=== PATIENT | male | born 1995 | race Caucasian/White ===

== ENCOUNTER 2020-12-20 21:03 | Emergency (ER) | payer BC, SELFPAY ==
--- NOTE | ~2020-12-20 | CT_ITS ---
EXAMINATION: CT abdomen pelvis wo con DATE: 12/20/2020 23:19 INDICATION: Flank pain TECHNIQUE: Computed tomography (CT) of the abdomen and pelvis was performed without intravenous contr ast. Automated exposure control and iterative reconstruction technique were employed. Exam dose: 164 4.92 mGy-cm total exam DLP. COMPARISON: None. FINDINGS: There is discoid atelectasis or more likely scarring in the middle lobe. No infiltrate or c onsolidation at the lung bases. Normal heart size. No pericardial or pleural effusion. The liver, gallbladder, bile ducts, pancreas, pancreatic duct and spleen as well as adrenal glands ar e unremarkable on this limited noncontrast examination. There IMPRESSION: Reviewed, dictated and finalized at [facility]. Reviewed, dictated and finalized at location A. AL SERVICES SPECIALIST IMPRESSION:
[2020-12-20 21:07] VITALS: BP 157/95; PULSE 107; RESP 18; TEMP 36.9; O2SAT 100
[2020-12-20 21:34] LABS: Basophils Absolute Auto 0.1 K/mm3 (0.0-0.1); Basophils Percent Auto 0.6 % (0.2-1.2); Eosinophils Absolute Auto 0.2 K/mm3 (0-0.3); Eosinophils Percent Auto 1.5 % (0-4.4); Hematocrit 45.9 % (42.0-52.0); Hemoglobin 14.9 g/dL (14.0-18.0); Immature Granulocyte Absolute 0.07 K/mm3 (0.00-0.031); Immature Granulocyte Percent A 0.5 % (0-0.5); Lymphocytes Absolute Auto 3.28 K/mm3 (0.9-3.2); Lymphocytes Percent Auto 21.2 % (18.3-44.2); Mean Corpuscular HGB Conc 32.5 g/dl (32-36); Mean Corpuscular Hemoglobin 26.5 pg (26-34); Mean Corpuscular Volume 81.5 fl (80-100); Mean Platelet Volume 10.6 fl (7.4-10.4); Monocytes Absolute Auto 1.3 K/mm3 (0.1-0.6); Monocytes Percent Auto 8.2 % (2.6-8.5); Neutrophils Absolute Auto 10.5 K/mm3 (1.3-6.7); Platelet Count Result 308 k/mm3 (150-375); Red Blood Count 5.63 M/mm3 (4.6-6.20); Red Cell Distribution Width 13.4 % (11.5-14.5); White Blood Count 15.5 K/mm3 (4.5-10.0)
[2020-12-20 21:41] LABS: Add Urine Microscopic? YES; Appearance Urine Cloudy (Clear); Bilirubin Urine Negative (Negative); Blood Urine 3+ (Negative); Color Urine Yellow (Yellow); Glucose Urine UA Negative (Negative); Ketones Urine Negative (Negative); Leukocyte Esterase Ur Negative LEU/UL (Negative); Mucus Urine Few /lpf; Nitrate Urine Negative (Negative); Protein Urine 2+ mg/dL (Negative); RBC Urine >75 /hpf (0-2); Specific Grav Ur 1.021 (1.001-1.035); Urobilinogen Urine Negative mg/dL (<2.0)
[2020-12-20 21:45] LABS: Alanine Aminotransferase 58 U/L (4-50); Albumin Level 4.2 g/dL (3.5-5.1); Alkaline Phosphatase 83 U/L (38-126); Anion Gap 6 mmol/L (8-16); Aspartate Amino Transferase 46 U/L (17-59); Bilirubin,Total 0.4 mg/dL (0.2-1.3); Blood Urea Nitrogen 14 mg/dL (9-20); Carbon Dioxide 34 mmol/L (22-30); Chloride 98 mmol/L (98-107); Estimated CRCL calculation 110 ml/min; Estimated Glomerular Filt Rate > 60; Glucose 123 mg/dL (75-110); Potassium 4.1 mmol/L (3.4-5.0); Sodium 138 mmol/L (137-145)
[2020-12-20] MEDS: SODIUM CHLORIDE 0.9% IV 1,000 ML 999 ML IV CONT (22:40)
[2020-12-20] MEDS: ONDANSETRON INJ 4 MG/2 ML VIAL IV PUSH (22:41)
[2020-12-20] MEDS: KETOROLAC 30 MG/ML VIAL (*BKC) IV PUSH (22:42)
[2020-12-20] MEDS: MORPHINE SULFATE (*CRX) 4 MG/ML INJ IV PUSH (22:43)
--- NOTE | 2020-12-21 00:01 | ED.GENADULT ---
HPI - General Adult General Chief complaint: Back Pain/Injury Stated complaint: right flank pain Time Seen by Provider: 12/20/20 22:22 History of Present Illness HPI narrative: Patient a 25-year-old gentleman who presents emergency department with complaint of right flank pain. Patient reports the pain started suddenly reports that it radiates to his right lower quadrant patient states the pain did get much better upon arrival to the emergency department the patient also reports he has noticed his urine has been very dark. Patient reports no prior history of kidney stones reports that he has had no fever or chills. Patient does report that he had some nausea with this. Related Data Allergies Allergy/AdvReac Type Severity Reaction Status Date / Time No Known Allergies Allergy Unverified 12/20/20 22:12 Review of Systems Review of Systems: Narrative: A 10 system review of systems was completed on the patient and is negative except for what is stated in the HPI. Nursing and ancillary documentation was reviewed. PMFSH Comments Patient reports no significant past medical history Social history patient does drink a fair number of energy drinks and caffeinated beverages. Denies illicit drug use Exam Narrative: Exam Narrative: GENERAL: Well-appearing, well-nourished, and in no acute distress. HEAD: Normocephalic, atraumatic. EYES: PERRLA and EOMI. ENT: Nares clear, no rhinorrhea or epistaxis. Mucous membranes moist. NECK: Supple. CHEST: Clear to auscultation. No respiratory distress. HEART: Regular rate and rhythm. No murmur heard. Normal peripheral pulses. ABDOMEN: Soft, nontender, nondistended, normal active bowel sounds. EXTREMITIES: Normal range of motion. No edema. SKIN: Warm, dry, no rash. NEURO: No focal deficits. Alert and oriented x3. PSYCH: Normal mood and affect. Course Course Emergency Course: Patient is pain was doing much better upon arrival to the emergency department CT scan of the abdomen pelvis showed evidence of a 4 mm kidney stone at the level of the pelvis. Vital Signs Vital signs: Vital Signs Temperature 36.9 C 12/20/20 21:07 Pulse Rate 107 H 12/20/20 21:07 Respiratory Rate 18 12/20/20 21:07 Blood Pressure 157/95 H 12/20/20 21:07 Pulse Oximetry 100 12/20/20 21:07 Temperature 36.9 C 12/20/20 21:07 Pulse Rate 107 H 12/20/20 21:07 Respiratory Rate 18 12/20/20 21:07 Blood Pressure 157/95 H 12/20/20 21:07 Pulse Oximetry 100 12/20/20 21:07 Medical Decision Making Vital Signs Vital Signs: Vital Signs Temperature 36.9 C 12/20/20 21:07 Pulse Rate 107 H 12/20/20 21:07 Respiratory Rate 18 12/20/20 21:07 Blood Pressure 157/95 H 12/20/20 21:07 Pulse Oximetry 100 12/20/20 21:07 Temperature 36.9 C 12/20/20 21:07 Pulse Rate 107 H 12/20/20 21:07 Respiratory Rate 18 12/20/20 21:07 Blood Pressure 157/95 H 12/20/20 21:07 Pulse Oximetry 100 12/20/20 21:07 Lab Data Result diagrams: 12/20/20 21:25 12/20/20 21:25 Labs: Lab Results 12/20/20 12/20/20 12/20/20 Range/Units 21:20 21:25 21:25 WBC 15.5 H (4.5-10.0) K/mm3 RBC 5.63 (4.6-6.20) M/mm3 Hgb 14.9 (14.0-18.0) g/dL Hct 45.9 (42.0-52.0) % MCV 81.5 (80-100) fl MCH 26.5 (26-34) pg MCHC 32.5 (32-36) g/dl RDW 13.4 (11.5-14.5) % Plt Count 308 (150-375) k/mm3 MPV 10.6 H (7.4-10.4) fl Immature Gran % (Auto) 0.5 (0-0.5) % Neut % (Auto) 68.0 (45.5-73.1) % Lymph % (Auto) 21.2 (18.3-44.2) % [place] % (Auto) 8.2 (2.6-8.5) % Eos % (Auto) 1.5 (0-4.4) % Baso % (Auto) 0.6 (0.2-1.2) % Lymph # (Auto) 3.28 H (0.9-3.2) K/mm3 [place] # (Auto) 1.3 H (0.1-0.6) K/mm3 Eos # (Auto) 0.2 (0-0.3) K/mm3 Baso # (Auto) 0.1 (0.0-0.1) K/mm3 Abs Immat Gran (auto) 0.07 H (0.00-0.031) K/mm3 Absolute Neuts (auto) 10.5 H (1.3-6.7) K/mm3 Absolute Nucleated RBC 0.0 (0.0-0.012) K/m
[2020-12-21 00:29] VITALS: BP 128/86; PULSE 78; RESP 16; TEMP 36.8; O2SAT 100
== END 2020-12-21 00:30 | disposition home or self-care (01) ==
PROVIDERS: Emergency Medicine; Emergency Provider Emergency Medicine
DX: N13.2 Hydronephrosis with renal and ureteral calculous obstruction (principal)
CPT/HCPCS: 36415; 74176; 80053; 81001; 85025; 96361; 96374; 96375; 99284; J1885; J2270; J2405; J7030

== ENCOUNTER 2020-12-29 09:57 | Outpatient (CLI) | payer BC, SELFPAY ==
--- NOTE | ~2020-12-29 | XR_ITS ---
XR abdomen/kub 1V DATE: 12/29/2020 10:12 INDICATION: Right ureteral stone TECHNIQUE: AP projection, 2 views COMPARISON: 12/20/[address] abdomen pelvis FINDINGS: Bilateral renal calcified calculi are noted. The previously reported 4 mm right distal uret eral calculus at the upper sacral level is not definitively demonstrated but might be radiographicall y occult. Consider repeat noncontrast CT abdomen pelvis examination as clinically appropriate. The psoas shadows are intact. No visceromegaly. No evidence of bowel obstruction. Included skeletal structures are unremarkable. IMPRESSION: Bilateral nephrolithiasis Reviewed, dictated and finalized at [facility]. Reviewed, dictated and finalized at location A. VITY ASSISTANT IMPRESSION: Bilateral nephrolithiasis
== END 2020-12-29 09:58 | disposition home or self-care (01) ==
PROVIDERS: Visit Provider Urology
DX: N20.1 Calculus of ureter (principal); N20.0 Calculus of kidney
CPT/HCPCS: 74018

== ENCOUNTER → 2021-01-03 10:32 | Outpatient (CLI) | payer BC, SELFPAY ==
--- NOTE | ~2021-01-03 | US_ITS ---
US retroperitoneal comp 01/03/2021 11:03 Procedure: Realtime transabdominal ultrasound of the kidneys and bladder. Indication: Right ureteral stone Comparison: CT dated 12/20/2020 Findings: Renal echotexture is normal bilaterally without hydronephrosis, contour deforming mass or r enal calculus. The right kidney measures 9.5 cm and left kidney measures 10.8 cm. Bladder within nor mal limits. Impression: 1: Unremarkable renal ultrasound. No stones, masses or hydronephrosis. Reviewed, dictated and finalized at location B. NT EVALUATOR Impression: 1: Unremarkable renal ultrasound. No stones, masses or hydronephrosis.
== END ==
PROVIDERS: Visit Provider Urology
DX: N20.1 Calculus of ureter (principal)
CPT/HCPCS: 76770

== ENCOUNTER 2023-04-20 09:52 | Emergency (ER) | payer OTHER, SELFPAY ==
[2023-04-20] VITALS (15 sets, daily range): BP systolic 118–155; BP diastolic 56–97; PULSE 83; RESP 14; TEMP 36.6; O2SAT 95–100
--- NOTE | ~2023-04-20 | XR_ITS ---
EXAMINATION: XR abdomen/kub 1V DATE: 04/20/2023 12:11 INDICATION: Right ureteral stone. TECHNIQUE: A supine view of the abdomen on 2 radiographs was obtained. COMPARISON: CT abdomen and pelvis 04/20/2023 FINDINGS: There are no dilated loops of bowel. There are stones in the kidneys measuring up to 8 mm o n the right. There is a 3 mm stone in proximal right ureter. There are phleboliths in the pelvis. IMPRESSION: 1. 3 mm stone in proximal right ureter. 2. Bilateral kidney stones. Reviewed, dictated and finalized at location A.
--- NOTE | ~2023-04-20 | CT_ITS ---
EXAMINATION: CT abdomen pelvis wo con DATE: 04/20/2023 11:22 INDICATION: Right flank pain. Abdominal pain. TECHNIQUE: Computed tomography (CT) of the abdomen and pelvis was performed without intravenous contr ast. Automated exposure control and iterative reconstruction technique were employed. The dose-length product was 1533.54 mGy-cm. COMPARISON: CT abdomen and pelvis 12/20/2020 FINDINGS: The visualized portions of the lung bases demonstrate minimal atelectasis. No pleural effus ion. The heart size is normal. No pericardial effusion. There is diffuse hepatic steatosis. The gallb ladder, spleen, pancreas, and adrenal glands are normal. There are 5 stones in right kidney measuring up to 8 mm. There is mild right hydronephrosis. There is a 3 mm stone in proximal right ureter. Ther e are 5 stones in left kidney measuring up to 6 mm. There is a left inguinal hernia containing fat. T here are no dilated loops of bowel. The appendix is normal. There are no pathologically enlarged lymp h nodes. There is no free intraperitoneal fluid. There is mild thoracic and lumbar spondylosis. There is mild chronic anterior wedging of T11 and T12 vertebral bodies. IMPRESSION: 1. 3 mm stone in proximal right ureter with mild right hydronephrosis. 2. Bilateral nonobstructing kidney stones. Reviewed, dictated and finalized at location A.
[2023-04-20 10:54] LABS: Basophils Absolute Auto 0.1 K/mm3 (0.0-0.1); Basophils Percent Auto 1.1 % (0.2-1.2); Eosinophils Absolute Auto 0.1 K/mm3 (0-0.3); Eosinophils Percent Auto 1.3 % (0-4.4); Hematocrit 44.8 % (42.0-52.0); Hemoglobin 14.4 g/dL (14.0-18.0); Immature Granulocyte Absolute 0.04 K/mm3 (0.00-0.031); Immature Granulocyte Percent A 0.5 % (0-0.5); Lymphocytes Absolute Auto 1.04 K/mm3 (0.9-3.2); Lymphocytes Percent Auto 13.8 % (18.3-44.2); Mean Corpuscular HGB Conc 32.1 g/dl (32-36); Mean Corpuscular Hemoglobin 26.1 pg (26-34); Mean Corpuscular Volume 81.2 fl (80-100); Mean Platelet Volume 10.9 fl (7.4-10.4); Monocytes Absolute Auto 0.5 K/mm3 (0.1-0.6); Monocytes Percent Auto 6.5 % (2.6-8.5); Neutrophils Absolute Auto 5.8 K/mm3 (1.3-6.7); Neutrophils Percent Auto 76.8 % (45.5-73.1); Platelet Count Result 265 k/mm3 (150-375); Red Blood Count 5.52 M/mm3 (4.6-6.20); Red Cell Distribution Width 13.3 % (11.5-14.5); White Blood Count 7.6 K/mm3 (4.5-10.0)
--- NOTE | 2023-04-20 10:57 | ED.ABDPAIN ---
HPI - Abdominal Pain General Chief Complaint: Abdominal Pain Stated Complaint: right flank pain - hx of kidney stones Time Seen by Provider: 04/20/23 10:06 Source: patient Mode of arrival: ambulatory Limitations: no limitations History of Present Illness HPI narrative: Patient is a 28-year-old male who presents to the ED with report of right flank and abdominal pain. Patient reports pain began around 815 this morning. There is a constant dull pain with intermittent waves of worsening pain. Pain radiates from his right mid back around to his right sided lower abdomen into his right groin. Denies testicular pain or swelling. Patient developed nausea and vomiting, which prompted his presentation. He tried taking Tylenol this morning, but was unable to keep it down. He does also report having mild difficulty urinating this morning, denies hematuria, fevers, diarrhea, constipation. Patient has history of kidney stones in November 2021, which felt similar. He was able to pass this on his own. Related Data Allergies Allergy/AdvReac Type Severity Reaction Status Date / Time No Known Allergies Allergy Unverified 04/20/23 09:53 Review of Systems Review of Systems: CONSTITUTIONAL: Denies fever, chills, or sweats. CARDIOVASCULAR: Denies chest pain. RESPIRATORY: Denies dyspnea. GASTROINTESTINAL: See HPI. GENITOURINARY: See HPI. SKIN: Denies rash or itching. MUSCULOSKELETAL: See HPI. All systems reviewed & are unremarkable except as noted in HPI and below PMFSH Past Medical History Medical History (Updated 04/20/23 @ 11:55 by Dora Hampton PA-C) Kidney stones Surgical History Surgical History (Updated 04/20/23 @ 11:01 by Dora Hampton PA-C) No pertinent past surgical history Social History Social History (Updated 04/20/23 @ 11:01 by Dora Hampton PA-C) Smoking status: Never smoker Exam Narrative: GENERAL: Well appearing, morbidly obese with BMI of 43.9, non-toxic, in no acute distress. HEAD: Normocephalic, atraumatic. NECK: Supple. No adenopathy, no masses. RESPIRATORY: Airway patent, respirations nonlabored. Clear to auscultation bilaterally, no rales, rhonchi, wheezing. CARDIOVASCULAR: Regular rate and rhythm without murmurs, rubs, or gallops. Radial pulses 2+ and equal bilaterally. ABDOMINAL: Soft, tenderness in right lower/lateral abdomen, nondistended, no hepatosplenomegaly. Normoactive BS. No significant CVA tenderness to percussion. MUSCULOSKELETAL: Moves all extremities. Strength/ROM intact without gross deformities. No significant TTP to right lumbosacral region. No midline spinal tenderness. SKIN: Warm, dry, normal color. No rashes. NEURO: A&O X3. Speech clear. Cranial nerves II-XII grossly intact. Steady gait. No ataxic movements. PSYCHIATRIC: Appropriate mood and affect. Normal interaction. Course Vital Signs Vital signs: Vital Signs Temperature 97.9 F 04/20/23 10:05 Pulse Rate 83 04/20/23 10:05 Respiratory Rate 14 04/20/23 10:05 Blood Pressure 155/97 H 04/20/23 10:05 Pulse Oximetry 100 04/20/23 10:05 Oxygen Delivery Room Air 04/20/23 10:05 Temperature 97.9 F 04/20/23 10:05 Pulse Rate 83 04/20/23 10:05 Respiratory Rate 14 04/20/23 10:05 Blood Pressure 118/56 L 04/20/23 12:02 Pulse Oximetry 98 04/20/23 12:45 Oxygen Delivery Room Air 04/20/23 10:05 MDM - Abdominal Pain MDM Narrative Medical decision making narrative: Patient presented to ED with onset of right flank and abdominal pain this morning, history of kidney stones which felt similar. Patient vitals stable upon arrival. Afebrile. He is in no acute distress. CBC w/o leukocytosis. [employer] Operator stable at 1. UA with trace leuk esterase and lots of blood, no WBC. Will send for culture. CT abd/pelvis showing 3 mm right proximal ureter stone, bilateral nephrolithiasis. KUB obtained and visualized stone. Patient updated on lab and imaging findings. Feeling better with s
[2023-04-20 11:09] LABS: Alanine Aminotransferase 41 U/L (6-50); Albumin Level 4.3 g/dL (3.5-5.1); Alkaline Phosphatase 76 U/L (38-126); Anion Gap 7 mmol/L (8-16); Aspartate Amino Transferase 31 U/L (17-59); Bilirubin,Total 0.5 mg/dL (0.2-1.3); Blood Urea Nitrogen 11 mg/dL (9-20); Calcium 8.8 mg/dL (8.4-10.2); Carbon Dioxide 29 mmol/L (22-30); Chloride 103 mmol/L (98-107); Estimated CRCL calculation 126 ml/min; Estimated Glomerular Filt Rate > 60; Glucose 145 mg/dL (65-110); Lipase 46 U/L (23-300); Potassium 4.1 mmol/L (3.4-5.0); Sodium 139 mmol/L (137-145)
[2023-04-20 11:21] LABS: Appearance Urine Cloudy (Clear); Bacteria Urine None Seen /hpf; Bilirubin Urine Negative (Negative); Blood Urine 3+ (Negative); Color Urine Dark Yellow (Yellow); Glucose Urine UA Negative (Negative); Ketones Urine Trace mg/dL (Negative); Leukocyte Esterase Ur Trace LEU/UL (Negative); Nitrate Urine Negative (Negative); Protein Urine 1+ mg/dL (Negative); RBC Urine >100 /hpf (0-2); Specific Grav Ur 1.022 (1.001-1.035); Squamous Epithelial Cell Urine None seen /hpf (Few); WBC Urine 0-5 /hpf
[2023-04-20 11:38] LABS: Add Urine Microscopic? YES
[2023-04-20] MEDS: SODIUM CHLORIDE 0.9% IV 1,000 ML 999 ML IV CONT (12:20)
== END 2023-04-20 13:05 | disposition home or self-care (01) ==
PROVIDERS: Emergency Provider Physician Assistant
DX: N20.1 Calculus of ureter (principal); N20.0 Calculus of kidney; Z87.442 Personal history of urinary calculi
CPT/HCPCS: 36415; 74018; 74176; 80053; 81001; 83690; 85025; 87086; 96360; 99284; J7030

== ENCOUNTER 2023-07-12 14:59 | Outpatient (CLI) | payer OTHER, SELFPAY ==
--- NOTE | ~2023-07-12 | XR_ITS ---
EXAM: XR abdomen/kub 1V DATE: 07/12/2023 15:28 HISTORY: GROSS HEMATURIA . COMPARISON: 04/20/2023. FINDINGS: Clear lung bases. Normal bowel gas pattern. No organomegaly. Similar-appearing bilateral c alcifications projecting over the renal shadows. Pelvic phleboliths. Regional bones and soft tissues normal for age. IMPRESSION: Stable bilateral nephrolithiasis. Reviewed, dictated and finalized at location K.
--- NOTE | ~2023-07-12 | CT_ITS ---
EXAMINATION: CT abdomen pelvis wo/w con DATE: 07/12/2023 16:26 INDICATION: Gross hematuria TECHNIQUE: Computed tomography (CT) of the abdomen and pelvis was performed without intravenous contr ast. CT of the abdomen and pelvis was then performed with a total of 130 mL Omnipaque 350 intravenous contrast using a double-bolus technique for simultaneous opacification of the renal parenchyma and r enal collecting system. The dose-length product (DLP) was 2301.90 mGy-cm. Automated exposure control and iterative reconstruction technique were employed. COMPARISON: 04/20/2023 FINDINGS: Minimal dependent atelectasis is present in the lung bases. The heart size is normal. The l iver, spleen, pancreas, gallbladder, and adrenal glands are normal. There are five nonobstructing sto merlyn of the right kidney. The largest measures 9 mm in the lower pole. There are three nonobstructing stones of the left kidney. The largest measures 6 mm in the mid kidney. There are no stones in the ur eters or bladder. No hydronephrosis or hydroureter. No suspicious renal or urothelial lesion identifi ed. No pathologically enlarged abdominal or pelvic lymph nodes are identified. No free intraperitonea l gas or evidence of bowel obstruction. The appendix is normal. There are umbilical and left inguinal hernias containing fat. IMPRESSION: 1. Bilateral nonobstructing nephrolithiasis. No suspicious renal or urothelial lesion identified. Reviewed, dictated and finalized at location F.
== END 2023-07-12 15:00 ==
PROVIDERS: PCP Nurse Practitioner Adult Health; Visit Provider Nurse Practitioner Adult Health
DX: R31.0 Gross hematuria (principal); N20.0 Calculus of kidney
CPT/HCPCS: 74018; 74178; Q9967

== ENCOUNTER 2024-05-11 14:46 | Outpatient (CLI) | payer BC, SELFPAY ==
--- NOTE | ~2024-05-11 | CT_ITS ---
EXAMINATION: CT abdomen pelvis wo con DATE: 05/11/2024 14:59 INDICATION: Right flank pain. TECHNIQUE: Computed tomography (CT) of the abdomen and pelvis was performed without intravenous contr ast. Automated exposure control and iterative reconstruction technique were employed. The dose-length product was 1550.62 mGy-cm. COMPARISON: CT abdomen and pelvis 07/12/2023 FINDINGS: The visualized portions of the lung bases demonstrate mild atelectasis. No pleural effusion . The heart size is normal. No pericardial effusion. The liver, spleen, gallbladder, pancreas, and ad renal glands are normal. There is mild right hydronephrosis and hydroureter. There are approximately 5 stones in proximal right ureter measuring up to 7 mm. There are 3 stones in left kidney measuring u p to 5 mm. There are no dilated loops of bowel. The appendix is normal. There is a left inguinal jeremy ia containing fat. There are no pathologically enlarged lymph nodes. There is no free intraperitoneal fluid. There is mild thoracic and lumbar spondylosis. There is mild chronic anterior wedging of mult iple lower thoracic vertebral bodies. IMPRESSION: 1. 5 stones in proximal right ureter measuring up to 7 mm with mild right hydronephrosis and hydroure ter. 2. Nonobstructing left kidney stones. Reviewed, dictated and finalized at location E. IMPRESSION: 1. 5 stones in proximal right ureter measuring up to 7 mm with mild right hydro nephrosis and hydroureter. 2. Nonobstructing left kidney stones.
== END 2024-05-11 15:00 | disposition home or self-care (01) ==
LOC: ANHIMG 14:46
PROVIDERS: PCP Family Medicine; Visit Provider Physician Assistant
DX: N13.2 Hydronephrosis with renal and ureteral calculous obstruction (principal)
CPT/HCPCS: 74176

== ENCOUNTER 2024-05-29 09:51 | Outpatient (CLI) | payer BC, SELFPAY ==
--- NOTE | ~2024-05-29 | XR_ITS ---
Supine and upright views of the abdomen Clinical history: Right ureteral stone COMPARISON: 07/12/2023 Findings: Bowel gas pattern is nonspecific. No evidence for obstruction or free air. Suspected amorph ous calcification the region of the mid right ureter, which could reflect a ureteral stone. Stable le ft renal stones noted.. Osseous structures are intact. Impression: Stable left renal stones. Suspected mid right ureteral stones. Reviewed, dictated and finalized at location M. Impression: Stable left renal stones. Suspected mid right ureteral stones.
== END 2024-05-29 09:52 ==
LOC: MICIMG 09:53
PROVIDERS: PCP Family Medicine; Visit Provider Physician Assistant
DX: N20.1 Calculus of ureter (principal); N20.0 Calculus of kidney
CPT/HCPCS: 74018

== ENCOUNTER 2024-06-09 01:52 | Day surgery (SDC) | payer BC, SELFPAY ==
[2024-06-04 09:10] VITALS: BMI 47.2
--- NOTE | 2024-06-04 09:16 | PC.NURSE ---
Report to the Outpatient Waiting Room, entrance under the green pavilion located off [facility], at time _0700_ on date _[id number]_. Planned Procedure Time: _0900_. Time changes happen often and if your time is changed the preop area will call you the afternoon before. - You and your visitor will be asked to self-screen and do not enter if you have any COVID symptoms. - A mask is optional within the hospital at this time. Patients may have clear liquids (water, carbonated beverages, clear teas, apple juice) until 3 hours prior to surgery with a maximum of 20 ounces. - No food from midnight until time of surgery Take the following medications with a SIP of water the morning of surgery: ____None DO NOT STOP ANY OF YOUR OTHER PRESCRIPTION MEDICATIONS PRIOR TO SURGERY ?EXCEPT THE FOLLOWING Medications to discontinue per physician None Date to take last dose Please no make-up, nail swedish, hairspray, perfume, deodorant, or body powder the day of surgery. No jewelry (including any body piercings) or valuables the day of surgery, leave them at home. Please take a shower or bath the night before, or the morning of, surgery with an antibacterial soap. Wear comfortable, loose fitting clothing. - Jewelry must be removed prior to entering the operating room. Rings and piercings that are not removed may be cut off. - The hospital will not accept responsibility for valuables. - Please leave all valuables, including medications, at home the day of surgery. If you are going home after surgery, a licensed hole digger truck driver must drive you home. - NO public transportation without another adult if you receive anesthesia. - We recommend that an adult stay with you for 24 hours following discharge. - We also recommend that you do not drive, make important decision, drink alcoholic beverages, or take any drugs that were not prescribed by your health care provider for at least 24 hours after your discharge time. Follow any additional instructions given to you from your surgeon. If you or anyone in your household have experienced Covid symptoms in the past week, please notify your surgeon or the nurse liaison at the phone number below for possible testing. Telephone instructions given to _Sánchez__and asked if any additional questions and then verbalized understanding. Patient advised to call surgeon office or pre surgery nurse liaison [phone] if any additional questions.
[2024-06-09] VITALS (8 sets, daily range): BP systolic 119–137; BP diastolic 67–97; PULSE 81–95; RESP 14–20; TEMP 36.2–37.1; O2SAT 94–100
--- NOTE | ~2024-06-09 | XR_ITS ---
EXAMINATION: XR retrograde pyelo w/stent RT DATE: 06/09/2024 10:27 INDICATION: Right ureteral stones TECHNIQUE: 4 fluoroscopic images of the abdomen and pelvis were obtained during procedure performed sharmila Cook. Radiologist was not present for the imaging or procedure. The amount of fluoroscopy t jami used during this procedure was 0.6 minutes. COMPARISON: 05/29/2024 FINDINGS: The mid right ureteral stones seen on prior CT and KUB are unable to be identified on the photoengraving finisher image s. Subsequent images demonstrate retrograde contrast into the right ureter and renal collecting syste m demonstrating mild hydronephrosis. Final image demonstrates advancement of an internal ureteral melida nt with proximal loop formed in the right renal pelvis. IMPRESSION: 1. Placement of a right internal ureteral stent in expected position. The previously seen right urete ral stones are unable be identified. Correlate with procedure note. Reviewed, dictated and finalized at location A. IMPRESSION: 1. Placement of a right internal ureteral stent in expected position. The previ ously seen right ureteral stones are unable be identified. Correlate with proce dure note.
--- NOTE | ~2024-06-09 | CT_ITS ---
Non-contrast CT scan of the Abdomen and Pelvis Clinical indication: Right ureteral stone Technique: 2.5 mm axial scans were obtained through the abdomen and pelvis without intravenous or or al contrast. Dose reduction technique was used on this scan by utilizing automated exposure control a nd iterative reconstruction technique. The dose-length product (DLP) was 1531.04 mGy-cm. COMPARISON: 05/11/2024 Findings: Images through the lung bases reveal no abnormalities. There are 3 adjacent stones in the mid right ureter, largest measuring approximately 7 mm in diameter (coronal image 81 for example). There is mild right hydroureteronephrosis to this level. There are s everal nonobstructing left renal stones, largest measuring 8 mm. No left ureteral stone or left hydro nephrosis. The liver, spleen, pancreas, gallbladder, and adrenals appear normal. There is no aortic aneurysm. There is no evidence of bowel obstruction. Images through the pelvis were performed. There is no evidence of ascites or lymphadenopathy. Urinary bladder unremarkable. No pelvic mass seen. Impression: 3 adjacent stones in the mid right ureter, largest measuring 7 mm. These are similar in appearance to prior exam, with probable mild distal migration as compared to prior exam. Associated mild right hyd roureteronephrosis to this level. Nonobstructing left nephrolithiasis, as detailed above. Reviewed, dictated and finalized at [facility]. Impression: 3 adjacent stones in the mid right ureter, largest measuring 7 mm. These are si milar in appearance to prior exam, with probable mild distal migration as linda red to prior exam. Associated mild right hydroureteronephrosis to this level. Nonobstructing left nephrolithiasis, as detailed above.
--- NOTE | 2024-06-09 07:55 | P.PNAN_ITS ---
Anes - Initial Pre Proc Eval Procedure: Operation Date: 06/09/24 09:00 Proposed Procedures p Cystoscopy, Right Ureteroscopy, Right Retrograde Pyelogram, Holmium Laser Right Stone Extraction, Possible Right Stent Placement - Zach Cook MD Date/Time: 06/09/24 07:55 Surgeon: Zach Cook MD Pre Op Diagnosis: Rt Ureteral Stone Patient Data Age: 29 Gender: M Height: 1.74 m Weight: 143.2 kg Allergies Allergy/AdvReac Type Severity Reaction Status Date / Time No Known Allergies Allergy Verified 06/04/24 09:09 Home Medications Medication Instructions Recorded Confirmed Type tamsulosin 0.4 mg capsule 0.4 mg PO QHS 06/03/24 06/04/24 History Patient hx anesthesia problems: none Family hx anesthesia problems: none Results Review: All pre-operative results and documents have been reviewed as part of the pre- operative evaluation. [facility] Past Medical History Medical History Kidney stones Obesity, morbid Surgical History Surgical History History of tonsillectomy (~1998) Family History Family History Mother COPD (chronic obstructive pulmonary disease) Hypertension Grandparent Heart disease Father Kidney stones Sibling Hypertension Sibling No problems noted. Social History Social History Smoking status: Never smoker Second hand tobacco smoke exposure: Yes Additional smoking assessment comments: Parents smoke/second hand smoke Alcohol intake: current Alcohol use details: occasional use Substance use: never Substance use type: does not use Do You Feel Safe in your Home?: Yes Lack of Transportation: No Lack of Food: Never True Current Housing: I Have Housing Concerned About Future Housing: No Difficulty Paying Gas/Electric Bills: No Difficulty Paying for Meds: No Currently Unemployed: No Education: Master's Degree or Higher Difficulty w/ Childcare or Family Care: No Living arrangements: with family Additional living arrangements comments: Parents Occupation/Education: occupation 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- [employer] Gender identity (if verbalized by the patient): Male Spiritual care concerns: No Agree to blood products: Yes Lilo Peralta Final PreProcedure Day of Procedure 06/09/24 07:55 Patient weight: morbidly obese Heart: regular rate and rhythm Lungs: clear to auscultation Airway: Mallampati scale class II Neurological: alert and oriented Last oral intake: >/= 8 hours ASA classification: III Emergent: no Anesthetic plan: proceed Anesthesia type and monitoring: general LMA and standard monitoring Results Review: All pre-operative results and documents have been reviewed as part of the pre- operative evaluation. Informed Consent: The patient's anesthetic plan and its attendant risks and benefits were discussed with the patient/family/POA. Questions were solicited and answers provided to the satisfaction of the patient/family/POA.
[2024-06-09] MEDS: LACTATED RINGERS 1,000 ML 30 ML IV CONT (08:00)
--- NOTE | 2024-06-09 08:41 | WPDHPUPDATE1 ---
History and Physical Update Update Date/Time: 06/09/24 08:41 History and Physical has been reviewed, including an updated exam of the patient. There are NO changes in the patient's condition. Risks, benefits, and alternatives have been discussed and questions answered. Patient agrees to proceed with procedure. Proceed with cystoscopy, right retrograde pyelogram, right ureteroscopy with stone extraction, possible laser stent placement
--- NOTE | 2024-06-09 08:46 | PM.IMHP ---
H&P: HPI History of Present Illness Date/Time: 06/09/24 08:46 Chief Complaint: Right ureteral calculi Narrative: 29-year-old male who has 3 ureteral stones in the right mid ureter. Largest is 7 mm. Presents for definitive therapy. Review of Systems Review of Systems: All systems reviewed & are unremarkable except as noted in HPI and below PMFSH Past Medical History Medical History Kidney stones Obesity, morbid Surgical History Surgical History History of tonsillectomy (~1998) Family History Family History Mother COPD (chronic obstructive pulmonary disease) Hypertension Grandparent Heart disease Father Kidney stones Sibling Hypertension Sibling No problems noted. Social History Social History Smoking status: Never smoker Second hand tobacco smoke exposure: Yes Additional smoking assessment comments: Parents smoke/second hand smoke Alcohol intake: current Alcohol use details: occasional use Substance use: never Substance use type: does not use Do You Feel Safe in your Home?: Yes Lack of Transportation: No Lack of Food: Never True Current Housing: I Have Housing Concerned About Future Housing: No Difficulty Paying Gas/Electric Bills: No Difficulty Paying for Meds: No Currently Unemployed: No Education: Master's Degree or Higher Difficulty w/ Childcare or Family Care: No Living arrangements: with family Additional living arrangements comments: Parents Occupation/Education: occupation 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[employer] Gender identity (if verbalized by the patient): Male Spiritual care concerns: No Agree to blood products: Yes Meds Home Medications and Allergies Home Medications Medication Instructions Recorded Confirmed Type tamsulosin 0.4 mg capsule 0.4 mg PO QHS 06/03/24 06/04/24 History Allergies Allergy/AdvReac Type Severity Reaction Status Date / Time No Known Allergies Allergy Verified 06/04/24 09:09 Exam Const: General: cooperative and comfortable Resp: Effort & Inspection: normal respiratory effort Cardio: Rate: regular rate Rhythm: regular rhythm Assessment and Plan Assessment and plan (1) Right ureteral calculus: Code(s): N20.1 - Calculus of ureter Status: Acute Assessment and Plan: Proceed with cystoscopy, right retrograde pyelogram, right ureteroscopy with stone extraction, possible laser stent placement. He is aware that if unable to advance the instruments then simply placing a stent for the time being. He understands and wishes to proceed
[2024-06-09] MEDS: ceFAZolin 3 GM/D5W 100 ML 100 ML IVPB (09:20)
[2024-06-09] MEDS: LIDOCAINE HCL 2% GEL UROJET 10 ML PKG MUCOUS MEM (10:21)
--- NOTE | 2024-06-09 10:27 | P.OP_ITS ---
Procedure Note - Detailed Date of Procedure 06/09/24 Pre-op Diagnosis Rt Ureteral Stone x3 Post-op Diagnosis Same Procedure Performed Cystoscopy, right retrograde pyelogram, right ureteroscopy with laser, stone extraction, right ureteral stent placement 4.8 [place] contour Surgeon Zach Cook MD Anesthesia General Description of Procedure Patient was taken the operative suite correctly identified. Once anesthesia was obtained he was placed in dorsal lithotomy position and prepped and draped usual sterile fashion. The meatus was dilated. Nineteen [place] scope was inserted into the bladder. There were no tumors or strictures noted. Right ureteral orifice was cannulated with a Sensor wire. Ureteral access sheath was placed. Mini flexible scope was inserted. The stones were noted lodged in the mid ureter. Using a 273 micron fiber we lasered the stones. Fragments were retrieved and sent for analysis. Reinspection revealed no significant residual stones. Retrograde pyelogram was then performed to confirm placement of the stent. 4.8 [place] contour stent was then placed with the proximal end coiled in the renal pelvis and the distal in the bladder. Bladder was drained. 2% viscous lidocaine was inserted into the urethra patient is taken recovery stable condition. He will follow-up in a week's time for stent removal. This completes dictation. Please send a copy of op note to my office. Estimated Blood Loss 0 Drains Yes Packing No Pathology Yes Complications No immediate complications Condition Stable Disposition PACU
--- NOTE | 2024-06-09 10:56 | SUR.PHASEI ---
Simple mask removed at 1050.
[2024-06-09] MEDS: fentaNYL CITRATE INJ (*CRX) 100 MCG/2 ML VIAL 25 MCG IV PUSH (10:59)
== END 2024-06-09 11:55 | disposition home or self-care (01) ==
PROVIDERS: PCP Family Medicine; Visit Provider Urology
PROC: (CPT 52352; principal; 2024-06-09 09:00)
DX: N20.1 Calculus of ureter (principal); E66.01 Morbid (severe) obesity due to excess calories; Z68.42 Body mass index [BMI] 45.0-49.9, adult
CPT/HCPCS: 52356; 74176; 74420; 82365; 88300; C1758; C1769; C1894; C2617; J0690; J1100; J2405; J3010; J7120; Q9966

== ENCOUNTER 2024-06-15 11:59 | Emergency (ER) | payer BC, SELFPAY ==
--- NOTE | ~2024-06-15 | XR_ITS ---
XR abdomen/kub 1V Ordering provider: Guillermo Marshall MD History: . stent evaluation PAIN TO RT SIDE STENT 7 DAYS AGO . Comparison: None. FINDINGS: BOWEL: Nonobstructive bowel gas pattern. ORGANOMEGALY: None. SIGNIFICANT PATHOLOGIC CALCIFICATIONS: None. Right double-J stent. OTHER: No free air is seen under the diaphragm. Bilateral hip osteoarthritic changes. IMPRESSION: NO ACUTE ABDOMINAL FINDINGS. Reviewed, dictated and finalized at location A.
[2024-06-15 12:05] VITALS: BP 139/99; PULSE 85; RESP 20; TEMP 36.4; O2SAT 100
[2024-06-15 14:06] VITALS: BP 124/83; O2SAT 99
[2024-06-15 14:18] VITALS: BP 124/83; PULSE 94; RESP 14; O2SAT 100
--- NOTE | 2024-06-15 14:18 | PC.NURSE ---
Pt to CT scan via stretcher at this time
[2024-06-15 14:26] LABS: Appearance Urine Clear (Clear); Bacteria Urine None Seen /hpf; Bilirubin Urine Negative (Negative); Blood Urine 3+ (Negative); Color Urine Yellow (Yellow); Glucose Urine UA Negative (Negative); Ketones Urine Negative (Negative); Leukocyte Esterase Ur 1+ LEU/UL (Negative); Nitrate Urine Negative (Negative); Protein Urine 3+ mg/dL (Negative); RBC Urine >100 /hpf (0-2); Specific Grav Ur 1.023 (1.001-1.035); Squamous Epithelial Cell Urine None Seen /hpf (Few)
[2024-06-15 14:29] LABS: Basophils Absolute Auto 0.1 K/mm3 (0.0-0.1); Basophils Percent Auto 0.8 % (0.2-1.2); Eosinophils Absolute Auto 0.2 K/mm3 (0-0.3); Eosinophils Percent Auto 1.5 % (0-4.4); Hematocrit 47.3 % (42.0-52.0); Hemoglobin 14.8 g/dL (14.0-18.0); Immature Granulocyte Absolute 0.06 K/mm3 (0.00-0.031); Immature Granulocyte Percent A 0.5 % (0-0.5); Lymphocytes Absolute Auto 1.15 K/mm3 (0.9-3.2); Lymphocytes Percent Auto 10.1 % (18.3-44.2); Mean Corpuscular HGB Conc 31.3 g/dl (32-36); Mean Corpuscular Hemoglobin 26.1 pg (26-34); Mean Corpuscular Volume 83.6 fl (80-100); Mean Platelet Volume 10.7 fl (7.4-10.4); Monocytes Absolute Auto 1.1 K/mm3 (0.1-0.6); Monocytes Percent Auto 9.7 % (2.6-8.5); Neutrophils Absolute Auto 8.8 K/mm3 (1.3-6.7); Neutrophils Percent Auto 77.4 % (45.5-73.1); Platelet Count Result 301 k/mm3 (150-375); Red Blood Count 5.66 M/mm3 (4.6-6.20); Red Cell Distribution Width 13.3 % (11.5-14.5); White Blood Count 11.3 K/mm3 (4.5-10.0)
[2024-06-15 14:46] LABS: Add Urine Microscopic? YES
[2024-06-15 15:32] LABS: Alanine Aminotransferase 29 U/L (6-50); Albumin Level 4.3 g/dL (3.5-5.1); Alkaline Phosphatase 78 U/L (38-126); Anion Gap 6 mmol/L (4-12); Aspartate Amino Transferase 23 U/L (17-59); Bilirubin,Total 0.5 mg/dL (0.2-1.3); Blood Urea Nitrogen 16 mg/dL (9-20); Carbon Dioxide 30 mmol/L (22-30); Chloride 101 mmol/L (98-107); Estimated CRCL calculation 133 ml/min; Estimated Glomerular Filt Rate > 60; Glucose 89 mg/dL (65-110); Potassium 4.1 mmol/L (3.4-5.0); Sodium 137 mmol/L (137-145)
--- NOTE | 2024-06-15 16:33 | ED.GENADULT ---
HPI - General Adult General Chief complaint: Recheck/Abnormal Lab/Rx Stated complaint: swelling and pain on surgery site from stents Time Seen by Provider: 06/15/24 13:59 History of Present Illness HPI narrative: Patient is a 29-year-old male who presents ER with right-sided flank pain. Patient has a stent currently after receiving lithotripsy 4 days ago. No fevers or chills or sweats. No dysuria. Pain improved today after taking a tramadol. He had decreased his use of pain pills over last 24 hours. He feels like he has swelling to his right flank as well. Related Data Home Medications Medication Instructions Recorded Confirmed tamsulosin 0.4 mg capsule 0.4 mg PO QHS 06/03/24 06/04/24 Allergies Allergy/AdvReac Type Severity Reaction Status Date / Time No Known Allergies Allergy Verified 06/09/24 09:07 Review of Systems Review of Systems: All systems reviewed & are unremarkable except as noted in HPI and below Constitutional: Constitutional: Reports no additional constitutional complaints Cardiovascular: Cardiovascular: Reports no additional cardiovascular complaints Respiratory: Respiratory: Reports no additional respiratory complaints Gastrointestinal: Gastrointestinal: Reports no additional gastrointestinal complaints Genitourinary: Genitourinary: Denies hematuria, Denies dysuria and Denies urinary frequency Comments: +Flank pain Musculoskeletal: Musculoskeletal: Reports no additional musculoskeletal complaints [facility] Past Medical History Medical History Kidney stones Obesity, morbid Surgical History Surgical History History of tonsillectomy (~1998) Family History Family History Mother COPD (chronic obstructive pulmonary disease) Hypertension Grandparent Heart disease Father Kidney stones Sibling Hypertension Sibling No problems noted. Social History Social History Smoking status: Never smoker Second hand tobacco smoke exposure: Yes Additional smoking assessment comments: Parents smoke/second hand smoke Alcohol intake: current Alcohol use details: occasional use Substance use: never Substance use type: does not use Do You Feel Safe in your Home?: Yes Lack of Transportation: No Lack of Food: Never True Current Housing: I Have Housing Concerned About Future Housing: No Difficulty Paying Gas/Electric Bills: No Difficulty Paying for Meds: No Currently Unemployed: No Education: Master's Degree or Higher Difficulty w/ Childcare or Family Care: No Living arrangements: with family Additional living arrangements comments: Parents Occupation/Education: occupation 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 HEAD: Normocephalic, atraumatic. ENT: Mucous membranes moist. NECK: Supple. CHEST: Clear to auscultation. No respiratory distress. HEART: Regular rate and rhythm. Normal peripheral pulses. ABDOMEN: Soft, nontender, nondistended. No CVA tenderness. EXTREMITIES: Normal range of motion. No edema. SKIN: Warm, dry, no rash. NEURO: Alert and oriented x3. PSYCH: Normal mood and affect. Course Course Emergency Course: Patient informed of results. Given reassurance. Will add on Toradol for pain control after talking to urology. Already has urology f/u scheduled. Vital Signs Vital signs: Vital Signs Temperature 97.6 F 06/15/24 12:05 Pulse Rate 85 06/15/24 12:05 Respiratory Rate 20 06/15/24 12:05 Blood Pressure 139/99 H 06/15/24 12:
[2024-06-15 17:00] VITALS: BP 125/71; PULSE 81; RESP 15; O2SAT 99
== END 2024-06-15 17:02 | disposition home or self-care (01) ==
PROVIDERS: Emergency Provider Emergency Medicine; PCP Family Medicine
DX: G89.18 Other acute postprocedural pain (principal); R10.9 Unspecified abdominal pain; E66.01 Morbid (severe) obesity due to excess calories; Z68.42 Body mass index [BMI] 45.0-49.9, adult; Z96.0 Presence of urogenital implants; Z87.442 Personal history of urinary calculi; Z77.22 Contact with and (suspected) exposure to environmental tobacco smoke (acute) (chronic)
CPT/HCPCS: 36415; 74018; 80053; 81001; 85025; 87086; 99283

== ENCOUNTER 2024-07-21 09:14 | Outpatient (CLI) | payer BC, SELFPAY ==
--- NOTE | ~2024-07-21 | XR_ITS ---
XR abdomen/kub 1V 07/21/2024 09:30 Indication: Kidney stones. Procedure: KUB Comparison: 06/15/2024 Findings: There are left renal stones. Bowel gas pattern nonobstructive. Moderate colonic fecal loadi ng. There are pelvic phleboliths. Interval removal of right internal ureteral stent. Lung bases unrem arkable. Impression: 1: Left nephrolithiasis. Reviewed, dictated and finalized at location B. Impression: 1: Left nephrolithiasis.
== END 2024-07-21 09:15 | disposition home or self-care (01) ==
LOC: ANHIMG 09:17
PROVIDERS: PCP Family Medicine; Visit Provider Urology
DX: N20.0 Calculus of kidney (principal)
CPT/HCPCS: 74018

== ENCOUNTER 2025-10-01 09:20 | Outpatient (CLI) | payer BC, SELFPAY ==
--- NOTE | ~2025-10-01 | XR_ITS ---
EXAMINATION: XR abdomen/kub 1V, 10/01/2025 9:30 FILM RECORDIST HISTORY: calcium kidney stone COMPARISON: No comparisons available. Technique: 3 view. Findings: Bowel gas pattern unremarkable. No obstruction. Moderate fecal content limits evaluation however there are left-sided renal calculi noted the largest mid pole 3 x 4 mm. No acute osseous abnormality. Impression: 1. No acute abnormality. Reviewed, dictated and finalized at location P. RECORDIST Impression: 1. No acute abnormality.
== END 2025-10-01 09:21 | disposition home or self-care (01) ==
LOC: ANHIMG 09:23
PROVIDERS: PCP Family Medicine; Visit Provider Urology
DX: N20.0 Calculus of kidney (principal)
CPT/HCPCS: 74018